=== PATIENT | male | born 1995 | race Caucasian/White ===

== ENCOUNTER 2020-02-28 20:33 | Emergency (ER) | payer OTHER ==
[2020-02-28] MEDS ORDERED: PROPARACAINE 0.5% OPHTH DROPS 15 ML RIGHTEYE STA (20:42)
--- NOTE | 2020-02-28 20:59 | ED Physician Documentation ---
PD HPI OPHTHO - Stated complaint Stated Complaint: RT EYE INJ/METAL SHAVING - Chief complaint Chief Complaint: Heent - History obtained from History obtained from: Patient, Family - Additional information Additional information: Patient comes emergency department complaining of right eye pain and redness that started this afternoon. 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 He states that he was wearing safety glasses and did not at any point feel as though he had suddenly gotten a foreign body in his eye. However, when he removed the safety glasses after work, he noticed he had metal shavings all over himself and brushed himself off. He states that he thinks at that time is when he may have gotten something in his eye. He states he took a shower at home, but was beginning to notice that his eye was becoming increasingly irritated. His states she looked at his eye and that she noticed a very tiny speck of something over the iris. Patient does not wear contact lenses. He states he supposed to wear glasses because he has poor vision in his left eye. He denies any worsening of vision in the right. He states he is just noticed redness, a little extra tearing, and a sense of irritation like he has an eyelash in his eye. No other complaints at this time. Review of Systems Ten Systems: 10 systems reviewed and negative Constitutional: reports: Reviewed and negative Eyes: reports: Irritation. denies: Loss of vision, Decreased vision, Photophobia, Discharge Ears: reports: Reviewed and negative Nose: reports: Reviewed and negative Throat: reports: Reviewed and negative Cardiac: reports: Reviewed and negative Respiratory: reports: Reviewed and negative GI: reports: Reviewed and negative : reports: Reviewed and negative Skin: reports: Reviewed and negative Musculoskeletal: reports: Reviewed and negative Neurologic: reports: Reviewed and negative Psychiatric: reports: Reviewed and negative Endocrine: reports: Reviewed and negative Immunocompromised: reports: Reviewed and negative PD PAST MEDICAL HISTORY - Past Medical History Past Medical History: No - Past Surgical History Past Surgical History: Yes Ortho: Other - Present Medications Home Medications: Ambulatory Orders Medication Instructions Recorded Confirmed No Known Home Medications 02/28/20 02/28/20 - Allergies Allergies/Adverse Reactions: Allergies Allergy/AdvReac Type Severity Reaction Status Date / Time No Known Drug Allergies Allergy Verified 10/29/20 20:36 - Social History Does the pt smoke?: Yes Smoking Status: Current every day smoker Does the pt drink ETOH?: Yes Does the pt have substance abuse?: No - Immunizations Immunizations are current?: Yes - POLST Patient has POLST: No PD ED PE NORMAL - Vitals Vital signs reviewed: Yes - General General: Alert and oriented X 3, No acute distress, Well developed/nourished - HEENT HEENT: Atraumatic, PERRL, EOMI, Moist mucous membranes, Other (Moderate conjunctival injection right eye. No discharge. Patient's eyes fully open and no excessive tearing is noted. Tiny, particulate foreign body noted over cornea at 7 o'clock position. Enhances with fluorescein.) - Neck Neck: Supple, no meningeal sign - Cardiac Cardiac: RRR, No murmur - Respiratory Respiratory: Clear bilaterally - Abdomen Abdomen: Normal bowel sounds, Soft, Non tender, Non distended - Derm Derm: Warm and dry - Extremities Extremities: No deformity - Neuro Neuro: Alert and oriented X 3 - Psych Psych: Normal mood, Normal affect PD ED PE EXPANDED - Eyes Eyes: Normal eyelids (No foreign body under upper or lower eyelids.) Results - Vitals Vitals: Vital Signs - 24 hr 02/28/20 20:36 Temperature 36.5 C Heart Rate 73 Respiratory 16 Rate Blood Pressure 170/94 H O2 Saturation 98 Oxygen O2 Source Room air Procedures - FB removal FB location: Other (Eye, right) FB removal preparation: Local anesthesia-specify (Proparacaine drops) Removal method: Other (Swept with moistened cotton tip applicator) FB removal aftercare: No complications, Removed successfully PD MEDICAL DECISION MAKING - ED course Complexity details: considered differential, d/w patient, d/w family ED course: The patient was found to have a very tiny, particulate foreign body which appeared to be a punctate metal fragment. I did remove this as above with a moistened cotton tip applicator and foreign body was easily dislodged and whisked away. Upon reevaluation with magnification, no residual foreign body was noted. A punctate indentation in the cornea was noted superficially. No further fluorescein enhancement was noted outside of the initial site of foreign body. I discussed with the patient that he should expect to have some degree of inflammation in the eye for up to 24 hours but that this should rapidly begin to get better. We have discussed the normal indications for return or follow-up. Departure - Departure Disposition: 01 Home, Self Care Clinical Impression: Foreign body in eye Qualifiers: Encounter type: initial encounter Laterality: right Qualified Code(s): T15.91XA - Foreign body on external eye, part unspecified, right eye, initial encounter Condition: Stable Instructions: ED Foreign Body Cornea Comments: You had a very tiny metal shaving that was on the surface of your cornea, this sensitive outer portion of your eye that overlies the iris and pupil. This was easily removed with a moistened Q-tip, and was not strongly embedded in the cornea. In general, you should expect the inflammation in your eye to be improving within 24 hours. If you develop yellow, pus-like discharge and worsening redness, please have your eye rechecked.
[2020-02-28 21:06] VITALS: BP 148/98
== END 2020-02-28 21:05 | disposition home or self-care (01) ==
LOC: ED 20:33
DX: T15.01XA Foreign body in cornea, right eye, initial encounter (principal); X58.XXXA Exposure to other specified factors, initial encounter; Y93.89 Activity, other specified; Y92.138 Other place on military base as the place of occurrence of the external cause; Y99.0 Civilian activity done for income or pay; F17.200 Nicotine dependence, unspecified, uncomplicated
CPT/HCPCS: 65220; 99281; 99282; J3490; 65205

== ENCOUNTER 2020-07-29 22:01 | Emergency (ER) | payer OTHER ==
[2020-07-29 22:16] VITALS: BP 157/95
[2020-07-29] MEDS ORDERED: PROPARACAINE 0.5% OPHTH DROPS 15 ML LEFTEYE STA (22:30)
--- NOTE | 2020-07-29 23:39 | ED Physician Documentation ---
PD HPI OPHTHO - Stated complaint Stated Complaint: L EYE PX - Chief complaint Chief Complaint: Heent - History obtained from History obtained from: Patient - Additional information Additional information: Patient comes emergency department chief complaint of left eye foreign body. 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 He was wearing safety glasses which were open on the top, but did not feel anything go in his eye at that time. He states that a few hours later, he began to notice some discomfort in his eye and that his noticed a speck in his eye that normally is not there. Patient states that his eyes been sensitive to light and tearing and he noticed some redness. He does note that he was playing video games for a couple of hours and that this may have caused him to have dry eyes or strain his eyes also. No other complaints at this time. Patient does not wear contacts. No visual change. Review of Systems Ten Systems: 10 systems reviewed and negative Constitutional: reports: Reviewed and negative Eyes: reports: Photophobia, Irritation Ears: reports: Reviewed and negative Nose: reports: Reviewed and negative Throat: reports: Reviewed and negative Cardiac: reports: Reviewed and negative Respiratory: reports: Reviewed and negative GI: reports: Reviewed and negative : reports: Reviewed and negative Skin: reports: Reviewed and negative Musculoskeletal: reports: Reviewed and negative Neurologic: reports: Reviewed and negative Psychiatric: reports: Reviewed and negative Endocrine: reports: Reviewed and negative Immunocompromised: reports: Reviewed and negative PD PAST MEDICAL HISTORY - Past Medical History Past Medical History: No Cardiovascular: None Respiratory: None Neuro: None Endocrine/Autoimmune: None GI: None : None HEENT: None Psych: None Musculoskeletal: None Derm: None - Past Surgical History Past Surgical History: Yes Ortho: Other - Present Medications Home Medications: Ambulatory Orders Medication Instructions Recorded Confirmed No Known Home Medications 02/28/20 07/29/20 - Allergies Allergies/Adverse Reactions: Allergies Allergy/AdvReac Type Severity Reaction Status Date / Time No Known Drug Allergies Allergy Verified 07/29/20 22:16 - Social History Does the pt smoke?: Yes Smoking Status: Current every day smoker Does the pt drink ETOH?: Yes Does the pt have substance abuse?: No - Immunizations Immunizations are current?: Yes - POLST Patient has POLST: No PD ED PE NORMAL - Vitals Vital signs reviewed: Yes - General General: Alert and oriented X 3, No acute distress - HEENT HEENT: Atraumatic, PERRL, EOMI, Moist mucous membranes, Other (Tiny foreign body located centrally over cornea. No streaming with fluorescein exam. No corneal abrasion. Mild conjunctival injection. No discharge.) - Neck Neck: Supple, no meningeal sign - Respiratory Respiratory: No respiratory distress - Derm Derm: Warm and dry - Extremities Extremities: No deformity - Neuro Neuro: Alert and oriented X 3 - Psych Psych: Normal mood, Normal affect Results - Vitals Vitals: Vital Signs - 24 hr 07/29/20 07/29/20 22:13 23:05 Temperature 36.7 C Heart Rate 81 Respiratory 16 16 Rate Blood Pressure 157/95 H O2 Saturation 100 Oxygen O2 Source Room air Procedures - FB removal FB location: Other (I) FB removal preparation: Local anesthesia-specify (Proparacaine) Removal method: Irrigated/flushed, Other (Hypodermic needle) FB removal aftercare: No complications, Patient tolerated well, Removed successfully PD MEDICAL DECISION MAKING - ED course Complexity details: considered differential, d/w patient ED course: Minimal rust was noted at the site. I discussed with the patient that it is important after he has been shaving metal to take a very thorough shower afterward to avoid small pieces of debris falling from his hair into his eyes. We have discussed potential need for follow-up with ophthalmology, though I do not suspect this will be necessary, and the usual indications for return. Departure - Departure Disposition: 01 Home, Self Care Clinical Impression: Foreign body in eye Qualifiers: Encounter type: initial encounter Laterality: left Qualified Code(s): T15.92XA - Foreign body on external eye, part unspecified, left eye, initial encounter Condition: Stable Instructions: ED Foreign Body Cornea, ED Foreign Body Cornea W Rust Ring Follow-Up: Darrel Leong MD [Provider Admit Priv/Credential] - Comments: A metallic particle was removed from your cornea today. A thorough exam was done to be sure there were no other pieces of metallic debris anywhere else in your eye. If you tiny particles were noted to be on your eyelids, and as such, you should wash with running water very thoroughly to ensure that these do not fall into your eye. The cornea heals very quickly, and while you may have some eye irritation for the next 24 hours, you should be feeling better after tomorrow. If you notice any change in your vision, please follow-up with the product design specialist. Otherwise, please do not use any contact lenses until your eye is feeling completely better. Please consider getting some safety goggles that seal all the way around your eyes to prevent particles from flying in Discharge Date/Time: 07/29/20 23:45
== END 2020-07-29 23:45 | disposition home or self-care (01) ==
LOC: ED 22:01
DX: T15.82XA Foreign body in other and multiple parts of external eye, left eye, initial encounter (principal); W29.8XXA Contact with other powered hand tools and household machinery, initial encounter; Y93.89 Activity, other specified; F17.200 Nicotine dependence, unspecified, uncomplicated
CPT/HCPCS: 65220; 99282; 99284; J3490